=== PATIENT | female | born 1970 | race Hispanic/Latino ===

== ENCOUNTER → 2022-08-01 | Outpatient (CLI) | payer BC ==
[2022-08-01 09:22] LABS: INR 0.93 (0.85-1.15); PROTHROMBIN TIME 9.4 SEC (9.6-11.6)
[2022-08-01 09:24] LABS: PARTIAL THROMBOPLASTIN TIME 25.5 SEC (26.3-35.5)
== END | disposition home or self-care (01) ==
LOC: RAH 07:59
PROVIDERS: ATTEND Internal Medicine
DX: E04.1 Nontoxic single thyroid nodule (principal); I10 Essential (primary) hypertension; E66.3 Overweight; Z83.3 Family history of diabetes mellitus; Z79.01 Long term (current) use of anticoagulants; Z68.28 Body mass index [BMI] 28.0-28.9, adult
CPT/HCPCS: 10005; 36415; 76942; 85610; 85730; 96365

== ENCOUNTER 2022-09-21 06:18 | Day surgery (SDC) | payer BC ==
[2022-09-20 09:28] VITALS: BP 128/68
[2022-09-20 11:04] VITALS: BP 128/68
[~2022-09-21] VITALS: Ht 149.9 cm; Wt 64.0 kg
[2022-09-21] VITALS (16 sets, daily range): BP systolic 121–145; BP diastolic 63–86
[~2022-09-21 06:18] MED LIST: 0.9% NACL 500ML IV.SOLN 500 ML IV SCH; IBUP-2070 PO; MV-M1TAB45 PO
[2022-09-21] MEDS ORDERED: LACTATED RINGERS 1000ML 1,000 ML IV ONE (06:24)
[2022-09-21] MEDS ORDERED: FAMOTIDINE 20MG VIAL IV ONE (07:15)
[2022-09-21] MEDS ORDERED: MIDAZOLAM HCL 1 MG/ML 2ML VIAL ONE (07:29)
[2022-09-21] MEDS ORDERED: LIDOCAINE PF 100MG/5ML (2%) SYRINGE 5ML ONE (07:29)
[2022-09-21] MEDS ORDERED: GLYCOPYRROLATE 1 MG/5 ML SYRINGE ONE (07:29)
[2022-09-21] MEDS ORDERED: PHENYLEPHRINE HCL 10 MG/ML 1ML VIAL IV ONE (07:30)
[2022-09-21] MEDS ORDERED: FENTANYL CITRATE PF 50 MCG/1 ML 2ML VIAL ONE (07:30)
[2022-09-21] MEDS ORDERED: PROPOFOL 10 MG/ML 20ML VIAL IV ONE (07:30)
[2022-09-21] MEDS ORDERED: ROCURONIUM 10MG/1ML SYR 10 MG/ML ML ONE (07:56)
[2022-09-21] MEDS ORDERED: ONDANSETRON 4MG INJ ONE ×2 (08:03→09:08)
[2022-09-21] MEDS ORDERED: NEOSTIGMINE 5MG/5ML SYR IV ONE (08:28)
[2022-09-21] MEDS ORDERED: KETOROLAC 30MG VIAL (30MG/ML) ONE (08:43)
[2022-09-21] MEDS ORDERED: MEPERIDINE-PF 25 MG/ML SYG ONE ×2 (09:08→09:28)
== END 2022-09-21 10:15 | disposition home or self-care (01) ==
LOC: DAH 06:18
PROVIDERS: ATTEND Obstetrics & Gynecology
DX: Z30.430 Encounter for insertion of intrauterine contraceptive device (principal); N93.8 Other specified abnormal uterine and vaginal bleeding; Z20.822 Contact with and (suspected) exposure to COVID-19; N84.0 Polyp of corpus uteri; F32.A Depression, unspecified; E66.3 Overweight; Z98.890 Other specified postprocedural states; Z82.49 Family history of ischemic heart disease and other diseases of the circulatory system; Z83.3 Family history of diabetes mellitus; Z68.28 Body mass index [BMI] 28.0-28.9, adult
CPT/HCPCS: 87426; 81025; 58558; 84703; 36415; 58300; J7030; A4351; A4355; J7120; J3490 ×2; J3010; J2710; J2001; J2250; J2704; J2405 ×2; J1885; J2175 ×2; J2370; A4215; A4223; A4222; A4221; A4663